=== PATIENT | male | born 1995 | race Caucasian/White ===

== ENCOUNTER 2018-07-30 13:05 | Emergency (ER) | payer SELFPAY ==
[2018-07-30 13:13] VITALS: BP 143/68
[2018-07-30] MEDS ORDERED: KETOROLAC TROMETHAMINE INJ/PF 30 MG/1 ML SDV IV ONE (13:50)
[2018-07-30] MEDS ORDERED: NORMAL SALINE 1000 ML 1,000 ML IV ONE (13:50)
--- NOTE | 2018-07-30 13:52 | ER Document Report ---
ED Medical Screen (RME) - General Chief Complaint: Abdominal Pain Stated Complaint: ABDOMINAL PAIN Time Seen by Provider: 07/30/18 13:42 Notes: 3 years old male presents today with sudden onset of abdominal pain particularly on the periumbilical region to the right side sharp lasted for a while, after defecation improved. Associated with nausea. Therefore present to the ED. Examination is benign- TRAVEL OUTSIDE OF THE [place] IN LAST 30 DAYS: No - Related Data Allergies/Adverse Reactions: sulfamethoxazole [From ] Adverse Reaction (Verified 07/30/18 13:07) trimethoprim [From [facility]] Adverse Reaction (Verified 07/30/18 13:07) Past Medical History - Social History Chew tobacco use (# tins/day): No Frequency of alcohol use: Occasional Drug Abuse: None Renal/ Medical History: Denies: Hx Peritoneal Dialysis Physical Exam - Vital signs Vitals: Temp Pulse Resp BP Pulse Ox 98.5 F 101 H 14 143/68 H 98 07/30/18 13:11 07/30/18 13:11 07/30/18 13:11 07/30/18 13:11 07/30/18 13:11 Course - Vital Signs Vital signs: Temp Pulse Resp BP Pulse Ox 98.5 F 101 H 14 143/68 H 98 07/30/18 13:11 07/30/18 13:11 07/30/18 13:11 07/30/18 13:11 07/30/18 13:11
[2018-07-30 14:14] LABS: APPEARANCE,URINE CLEAR; BILIRUBIN,URINE NEGATIVE (NEGATIVE); COLOR,URINE YELLOW; GLUCOSE, URINE NEGATIVE (NEGATIVE); KETONES,URINE NEGATIVE (NEGATIVE); LEUKOCYTE ESTERASE,URINE NEGATIVE (NEGATIVE); NITRITE,URINE NEGATIVE (NEGATIVE); PROTEIN,URINE NEGATIVE (NEGATIVE); URINE SPECIFIC GRAVITY 1.021; UROBILINOGEN,URINE NEGATIVE mg/dL (<2.0)
[2018-07-30 14:20] LABS: ABSOLUTE BASOPHILS # (AUTO) 0.1 10^3/uL (0.0-0.2); ABSOLUTE EOSINOPHILS # (AUTO) 0.2 10^3/uL (0.0-0.6); ABSOLUTE LYMPHOCYTES (AUTO) 2.5 10^3/uL (0.5-4.7); ABSOLUTE MONOCYTES (AUTO) 0.9 10^3/uL (0.1-1.4); ABSOLUTE NEUT (AUTO) 8.3 10^3/uL (1.7-8.2); BASOPHILS % (AUTO) 0.4 % (0-2); EOSINOPHILS % (AUTO) 1.4 % (0-6); HEMATOCRIT 49.8 % (37.9-51.0); HEMOGLOBIN 17.3 g/dL (13.5-17.0); LYMPHOCYTES % (AUTO) 21.2 % (13-45); MEAN CORPUSCULAR HEMOGLOBIN 30.5 pg (27.0-33.4); MEAN CORPUSCULAR HGB CONC 34.8 g/dL (32.0-36.0); MEAN CORPUSCULAR VOLUME 88 fl (80-97); MONOCYTES % (AUTO) 7.4 % (3-13); PLATELET COUNT 250 10^3/uL (150-450); RED BLOOD COUNT 5.67 10^6/uL (4.35-5.55); RED CELL DISTRIBUTION WIDTH 12.9 % (11.5-14.0); SEGMENTED NEUTROPHILS % (AUTO) 69.6 % (42-78); TOTAL CELLS COUNTED % (AUTO) 100 %; WHITE BLOOD COUNT 11.9 10^3/uL (4.0-10.5)
--- NOTE | 2018-07-30 14:24 | RADIOLOGY REPORT (SQ) ---
EXAM DESCRIPTION: KUB/ABDOMEN (SINGLE VIEW) COMPLETED DATE/TIME: 07/30/2018 2:11 pm REASON FOR STUDY: Abdominal pain COMPARISON: None. NUMBER OF VIEWS: One view. TECHNIQUE: Supine radiographic image of the abdomen acquired. LIMITATIONS: None. FINDINGS: BOWEL GAS PATTERN: Normal bowel gas pattern. No dilated loops. CALCIFICATIONS: No suspicious calcifications. SOFT TISSUES: No gross mass or suggestion of organomegaly. HARDWARE: None in the abdomen. BONES: No acute fracture. No worrisome bone lesions. OTHER: No other significant finding. IMPRESSION: NO RADIOGRAPHIC EVIDENCE FOR ACUTE ABDOMINAL DISEASE. TECHNICAL DOCUMENTATION: JOB ID: [id number] 2010 [employer]- All Rights Reserved Reading location - IP/workstation name: [email or web address]
[2018-07-30 14:39] LABS: ALANINE AMINOTRANSFERASE 316 U/L (21-72); ALBUMIN 5.3 g/dL (3.5-5.0); ALKALINE PHOSPHATASE 90 U/L (38-126); ANION GAP 11 (5-19); ASPARTATE AMINO TRANSFERASE 113 U/L (17-59); BILIRUBIN,DIRECT 0.3 mg/dL (0.0-0.4); BILIRUBIN,TOTAL 0.7 mg/dL (0.2-1.3); BLOOD UREA NITROGEN 20 mg/dL (7-20); CALCIUM 10.3 mg/dL (8.4-10.2); CARBON DIOXIDE 30 mmol/L (22-30); CHLORIDE 101 mmol/L (98-107); GLUCOSE 90 mg/dL (75-110); LIPASE 66.3 U/L (23-300); POTASSIUM 4.8 mmol/L (3.6-5.0); SODIUM 142.2 mmol/L (137-145)
--- NOTE | 2018-07-30 14:58 | ER Document Report ---
ED General - General Chief Complaint: Abdominal Pain Stated Complaint: ABDOMINAL PAIN Time Seen by Provider: 07/30/18 13:42 Notes: Patient is a 23-year-old male that presents to the emergency department for chief complaint of abdominal pain. Patient states that he started having a pain around his bellybutton earlier today while he was at work, and radiated towards the right lower quadrant of his abdomen. He states that it was more of a sharp stabbing pain, and did seem to get worse so he decided to come to the emergency department. He describes the pain as a 6 out of 10, and constant. Denies prior history of abdominal pain or abdominal issues. He has not had any nausea, vomiting or diarrhea. Denies having any dysuria, hematuria or urinary frequency. He also denies having any fevers, chills, night sweats, chest pain or shortness of breath. Past Medical History: ADHD, depression Past Surgical History: [place] tooth extraction Social History: Admits to occasional alcohol use, denies tobacco or illicit drug use. Family History: Reviewed and noncontributory for presenting illness Allergies: Reviewed, see documented allergy list. REVIEW OF SYSTEMS: Unless otherwise stated in this report the patient's positive and negative responses for review of systems for constitutional, eyes, ENT, cardiovascular, respiratory, gastrointestinal, neurological, genitourinary, musculoskeletal, and integumentary systems and related systems to the presenting problem are either as stated in the HPI or were not pertinent or were negative for the symptoms and/or complaints related to the presenting medical problem. PHYSICAL EXAMINATION: Vital signs reviewed, nursing noted reviewed. GENERAL: Well-appearing, well-nourished and in no acute distress. HEAD: Atraumatic, normocephalic. EYES: Eyes appear normal, extraocular movements intact, sclera anicteric, conjunctiva are normal. ENT: nares patent, oropharynx clear without exudates. Moist mucous membranes. NECK: Normal range of motion, supple without lymphadenopathy LUNGS: Breath sounds clear to auscultation bilaterally and equal. No wheezes rales or rhonchi. HEART: Regular rate and rhythm without murmurs ABDOMEN: Soft, tenderness in the right lower quadrant particularly over McBurney 's point, negative heel strike testing, negative obturator's and psoas signs., normoactive bowel sounds. No rebound, guarding, or rigidity. No masses appreciated. EXTREMITIES: Nontender, good range of motion, no pitting or edema. NEUROLOGICAL: No focal neurological deficits. Moves all extremities spontaneously Motor and sensory grossly intact on exam. PSYCH: Normal mood, normal affect. SKIN: Warm, Dry, normal turgor, no rashes or lesions noted on exposed skin TRAVEL OUTSIDE OF THE [place] IN LAST 30 DAYS: No - Related Data Allergies/Adverse Reactions: sulfamethoxazole [From [facility]] Adverse Reaction (Verified 07/30/18 13:07) trimethoprim [From [facility]] Adverse Reaction (Verified 07/30/18 13:07) Past Medical History - Social History Smoking Status: Never Smoker Chew tobacco use (# tins/day): No Frequency of alcohol use: Occasional Drug Abuse: None Family History: Reviewed & Not Pertinent Patient has suicidal ideation: No Patient has homicidal ideation: No Renal/ Medical History: Denies: Hx Peritoneal Dialysis Physical Exam - Vital signs Vitals: Temp Pulse Resp BP Pulse Ox 98.5 F 101 H 14 143/68 H 98 07/30/18 13:11 07/30/18 13:11 07/30/18 13:11 07/30/18 13:11 07/30/18 13:11 Course - Re-evaluation Re-evalutation: Patient seen and examined vital signs reviewed. Laboratory data and imaging were ordered as appropriate for the patient's presenting symptoms and complaint, with consideration of any critical or life threatening conditions that may be associated with their obtained history and exam as noted above. Patient was treated with IV fluids and Toradol Results were reviewed when available and demonstrated mild leukocytosis, elevation of his LFTs, normal renal function The patient was re-evaluated and was still having some abdominal discomfort, his results were discussed with him, and I discussed with him that he should have a CT scan of his abdomen to evaluate for possible appendicitis, or other intra-abdominal acute conditions, patient stated that he thinks will cost him too much money, I did work to see if his insurance would cover something like this, but we cannot clarify that with him. I urged him that despite cost, this could be worked out at a later date, he still persisted that he would like to go home and see if he gets worse and if it does he may return to the emergency department. I stated that he would have to leave AGAINST MEDICAL ADVICE if this is his decision, which she was agreeable to. After performing a Medical Screening Examination, I spoke with the patient at length in regards to leaving the hospital against medical advice. I discussed evaluation for their presenting complaint and recommended further evaluation. I do not believe the patient should leave but the patient is alert oriented x4, understands the risks and benefits of staying and leaving including disability and . Pt understands that they can return at any time for further care and is more than welcome to do so. Pt verbalizes this understanding. Evaluation was most consistent with right lower quadrant abdominal pain. *Note is created using voice recognition software and may contain spelling, syntax or grammatical errors. Laboratory 07/30/18 07/30/18 07/30/18 13:40 14:05 14:05 WBC 11.9 H RBC 5.67 H Hgb 17.3 H Hct 49.8 MCV 88 MCH 30.5 MCHC 34.8 RDW 12.9 Plt Count 250 Seg Neutrophils % 69.6 Lymphocytes % 21.2 Monocytes % 7.4 Eosinophils % 1.4 Basophils % 0.4 Absolute Neutrophils 8.3 H Absolute Lymphocytes 2.5 Absolute Monocytes 0.9 Absolute Eosinophils 0.2 Absolute Basophils 0.1 Sodium 142.2 Potassium 4.8 Chloride 101 Carbon Dioxide 30 Anion Gap 11 BUN 20 Creatinine 0.81 Est GFR ( Amer) > 60 Est GFR (Non-Af Amer) > 60 Glucose 90 Calcium 10.3 H Total Bilirubin 0.7 Direct Bilirubin 0.3 Neonat Total Bilirubin Not Reportable Neonat Direct Bilirubin Not Reportable Neonat Indirect Bili Not Reportable AST 113 H ALT 316 H Alkaline Phosphatase 90 Total Protein 9.0 H Albumin 5.3 H Lipase 66.3 Urine Color YELLOW Urine Appearance CLEAR Urine pH 6.0 Ur Specific [place] 1.021 Urine Protein NEGATIVE Urine Glucose (UA) NEGATIVE Urine Ketones NEGATIVE Urine Blood NEGATIVE Urine Nitrite NEGATIVE Urine Bilirubin NEGATIVE Urine Urobilinogen NEGATIVE Ur Leukocyte Esterase NEGATIVE Urine WBC (Auto) 0 Squamous Epi Cells Auto <1 Urine Mucus (Auto) RARE Urine Ascorbic Acid NEGATIVE KUB X-Ray 07/30/18 13:50 IMPRESSION: NO RADIOGRAPHIC EVIDENCE FOR ACUTE ABDOMINAL DISEASE. - Vital Signs Vital signs: Temp Pulse Resp BP Pulse Ox 98.5 F 101 H 14 143/68 H 98 07/30/18 13:11 07/30/18 13:11 07/30/18 13:11 07/30/18 13:11 07/30/18 13:11 - Laboratory Result Diagrams: 07/30/18 14:05 07/30/18 14:05 Laboratory results interpreted by me: 07/30/18 07/30/18 14:05 14:05 WBC 11.9 H RBC 5.67 H Hgb 17.3 H Absolute Neutrophils 8.3 H Calcium 10.3 H AST 113 H ALT 316 H Total Protein 9.0 H Albumin 5.3 H Discharge - Discharge Clinical Impression: Abdominal pain Qualifiers: Abdominal location: right lower quadrant Qualified Code(s): R10.31 - Right lower quadrant pain Condition: Stable Disposition: AGAINST MEDICAL ADVICE Instructions: Abdominal Pain ([facility]) Additional Instructions: Please do not hesitate to return to the emergency department if your symptoms worsen in any way. Referrals: [facility] [Provider Group] - Follow up as needed
== END 2018-07-30 15:48 | disposition left against medical advice (07) ==
LOC: ER 13:05
DX: R10.813 Right lower quadrant abdominal tenderness (principal); R10.31 Right lower quadrant pain; R10.33 Periumbilical pain; D72.829 Elevated white blood cell count, unspecified; R79.89 Other specified abnormal findings of blood chemistry; Z53.29 Procedure and treatment not carried out because of patient's decision for other reasons
CPT/HCPCS: 99284; 96361; 96374; 36415; 83690; 85025; 80053; 81001; 74018; J1885